=== PATIENT | male | born 1985 | race Caucasian/White ===

== ENCOUNTER 2019-08-10 13:28 | Emergency (ER) | payer SELFPAY | END 2019-08-10 13:57 | disposition home or self-care (01) | LOC: ERS 13:28 | DX: M25.511 Pain in right shoulder (principal); F17.210 Nicotine dependence, cigarettes, uncomplicated | CPT/HCPCS: 99283 ==

== ENCOUNTER 2019-11-21 13:12 | Emergency (ER) | payer SELFPAY | END 2019-11-21 14:36 | disposition home or self-care (01) | LOC: ERS 13:12 | DX: J11.1 Influenza due to unidentified influenza virus with other respiratory manifestations (principal); F17.210 Nicotine dependence, cigarettes, uncomplicated | CPT/HCPCS: 87804; 99283 ==

== ENCOUNTER 2020-06-16 18:17 | Emergency (ER) | payer SELFPAY ==
[2020-06-16] MEDS ORDERED: Ketorolac Tromethamine 30 MG/ML VIAL ONE (18:34)
== END 2020-06-16 19:08 | disposition home or self-care (01) ==
LOC: ERS 18:17
DX: S16.1XXA Strain of muscle, fascia and tendon at neck level, initial encounter (principal); F17.210 Nicotine dependence, cigarettes, uncomplicated; V44.6XXA Car passenger injured in collision with heavy transport vehicle or bus in traffic accident, initial encounter
CPT/HCPCS: 96372; 99283; J1885

== ENCOUNTER 2020-07-20 12:39 | Emergency (ER) | payer SELFPAY ==
[2020-07-20] MEDS ORDERED: Lidocaine 1% w/Epinephrine 1:100K 20 ML VIAL ONE (13:40)
[2020-07-20] MEDS ORDERED: Bacitracin 1 PK ONE (14:45)
== END 2020-07-20 15:01 | disposition home or self-care (01) ==
LOC: ERS 12:39
DX: S61.215A Laceration without foreign body of left ring finger without damage to nail, initial encounter (principal); F17.210 Nicotine dependence, cigarettes, uncomplicated; W26.9XXA Contact with unspecified sharp object(s), initial encounter; Y99.0 Civilian activity done for income or pay
CPT/HCPCS: 12001